=== PATIENT | female | born 1955 | race American Indian/Alaskan Native ===

== ENCOUNTER 2018-12-26 05:47 | Day surgery (SDC) | payer BC ==
[~2018-12-26 05:47] MED LIST: ANCEF/STERILE WATER 2 GM/20 ML IV NR; LACTATED RINGERS 1,000 ML IV SCH
[2018-12-26] MEDS ORDERED: VERSED IV NR (06:00)
[2018-12-26] MEDS ORDERED: NACL BACTERIOSTATIC INFILTRATI ONE (06:33)
[2018-12-26] MEDS ORDERED: MARCAINE 0.25% INFILTRATI ONE ×2 (06:35→07:38)
[2018-12-26] MEDS ORDERED: XYLOCAINE 1%/ EPI 1:100,000 INFILTRATI ONE ×2 (06:35→07:38)
[2018-12-26] MEDS ORDERED: XYLOCAINE MPF 2% ONE (07:11)
[2018-12-26] MEDS ORDERED: DIPRIVAN 10 MG/ML IV ONE (07:12)
[2018-12-26] MEDS ORDERED: XYLOCAINE 1% 20 mL ONE (07:22)
[2018-12-26] MEDS ORDERED: SUBLIMAZE ONE (07:38)
[2018-12-26] MEDS ORDERED: NORCO 5/325 PO PRN (07:40)
[2018-12-26] MEDS ORDERED: SUBLIMAZE IV PRN (07:40)
--- NOTE | 2018-12-26 07:40 | Anesthesia Day of Surgery ---
Anesthesia Day of Surgery - Day of Surgery Patient Examined: Yes Patient H&P Reviewed: Yes Patient is NPO: Yes
--- NOTE | 2018-12-26 07:40 | Anesthesia Consultation ---
Anesthesia Consult and Med Hx Date of service: 12/26/18 - Airway Anesthetic Teeth Evaluation: Good, Caps ROM Head & Neck: Adequate Mental/Hyoid Distance: Adequate Mallampati Class: Class II Intubation Access Assessment: Probably Good - Pulmonary Exam CTA: Yes - Cardiac Exam Cardiac Exam: RRR - Pre-Operative Health Status ASA Pre-Surgery Classification: ASA3 Proposed Anesthetic Plan: MAC - Pulmonary Hx Smoking: No Hx Respiratory Symptoms: No Hx Sleep Apnea: Yes (off CPAP x6 months) - Cardiovascular System Hx Hypertension: Yes Hx Heart Attack/AMI: No Hx Percutaneous Transluminal Coronary Angioplasty (PTCA): No - Central Nervous System CVA: No Hx Psychiatric Problems: No - Gastrointestinal Hx Gastroesophageal Reflux Disease: Yes (Controlled w/ Nexium) - Endocrine Hx Renal Disease: No Hx Liver Disease: No Hx Insulin Dependent Diabetes: No Hx Non-Insulin Dependent Diabetes: No Hx Thyroid Disease: No - Hematic Hx Anemia: Yes Hx Sickle Cell Disease: No - Other Systems Hx Alcohol Use: No Hx Substance Use: No Hx Cancer: No Hx Obesity: Yes - Additional Comments Anesthesia Medical History Comments: No hx anesthetic complications.
--- NOTE | 2018-12-26 08:18 | Post Operative Note ---
Pre-op diagnosis: Hammered fifth toes bilaterall Post-op diagnosis: same Findings: see operative report. Procedure: Proximal interphalangeal joint arthroplasty bilaterally. Anesthesia: MAC Surgeon: ALECIA MCCLAIN Estimated blood loss: none Pathology: none Condition: stable Disposition: same day
--- NOTE | 2018-12-26 08:19 | Discharge Summary ---
Short Stay Discharge Plan Activity: no restrictions, advance as tolerated Weight Bearing Status: Weight Bear as Tolerated Diet: regular Wound: keep clean and dry Follow up with: JANINE SIMONS MD [Primary Care Provider] - 7 Days
--- NOTE | 2018-12-26 08:59 | Post Anesthesia Evaluation ---
- Post Anesthesia Evaluation Patient Participated: Yes Airway Patent: Yes Stable Respiratory Function: Yes Nausea/Vomiting: No Temp > 96.8F: Yes Pain Manageable: Yes Adequeate Hydration: Yes Anesthesia Complications: No
[2018-12-26 09:17] VITALS: BP 121/77
--- NOTE | 2018-12-26 12:43 | Operative Report ---
SURGEON: Reddy Lindsay DPM. WET PROCESS MILLER: None. PREOPERATIVE DIAGNOSIS: Painful hammertoe deformities, fifth toes bilaterally. POSTOPERATIVE DIAGNOSIS: Painful hammertoe deformities, fifth toes bilaterally. PROCEDURE: Proximal interphalangeal joint arthroplasty, fifth toes bilaterally. ANESTHESIA: MAC and local with 1:1 mix of 1% lidocaine with epinephrine and 0.25% Marcaine plain x 4 mL total. HEMOSTASIS: Epinephrine local 1:200,000. ESTIMATED BLOOD LOSS: Less than 1 mL. MATERIALS: None. PATHOLOGY: None. COMPLICATIONS: None. OPERATIVE SUMMARY: On this date, the patient was deemed appropriate surgical candidate, brought to the operating room and placed on the operating table in normal supine position. Following induction of adequate intravenous anesthesia, fifth toes bilaterally were blocked with the above-mentioned local mixture. Both feet were prepped and draped in the usual sterile fashion and following procedure was then carried out. PROXIMAL INTERPHALANGEAL JOINT ARTHROPLASTY FIFTH TOES BILATERALLY: Please note the identical procedure was carried out for both the right and left 5th toes and any differences will be noted in this dictation. Attention was directed to the lateral aspect of the fifth toes bilaterally where a very large ____ was identified. Two converging semielliptical incisions were carried out overlying this area and the entire skin wedge was excised in total. Large proximal dorsal digital nerve was encountered and at this time this was removed. An entry into the proximal phalangeal joint was carried out by incising the extensor tendon as well as the collateral ligaments. This allowed for the production of the head of the proximal phalanx. Once this was evaluated notably hypertrophic, an oscillating saw was used to remove the head from both the right and left fifth toes. A rongeur was used to remove any sharp or jagged edges and a small portion in lateral aspect in the middle phalanx on the left side. An offset rasp was used to smooth all rough remaining edges. Wound was flushed with normal saline. Closure was carried out with a 4-0 Vicryl suture to repair the extensor tendon and collateral ligaments followed by 5-0 nylon suture to close the skin in a simple interrupted fashion. A dry sterile dressing was then applied to both feet consisting of 4 x 4s, Nery and an Mark wrap. The patient tolerated the above procedures and anesthesia well without complications. Vital signs stable throughout. She will be discharged with home going instructions to maintain dressing clean, dry and intact and ambulate utilizing surgical shoes. JOB# [id number] RAMON/[id number]
== END 2018-12-26 09:50 | disposition home or self-care (01) ==
LOC: OR 05:47
PROVIDERS: ATTEND Podiatrist Foot & Ankle Surgery
DX: M20.41 Other hammer toe(s) (acquired), right foot (principal); M20.42 Other hammer toe(s) (acquired), left foot; E78.00 Pure hypercholesterolemia, unspecified; I10 Essential (primary) hypertension; G47.30 Sleep apnea, unspecified; K21.9 Gastro-esophageal reflux disease without esophagitis; E66.9 Obesity, unspecified; Z68.36 Body mass index [BMI] 36.0-36.9, adult; Z88.2 Allergy status to sulfonamides; Z90.49 Acquired absence of other specified parts of digestive tract; Z79.899 Other long term (current) drug therapy; Z98.49 Cataract extraction status, unspecified eye; Z98.890 Other specified postprocedural states; Z86.2 Personal history of diseases of the blood and blood-forming organs and certain disorders involving the immune mechanism
CPT/HCPCS: 28285; 82803; 88304; 88311; J0690; J2250; J2704; J3010; J7120; 88302